=== PATIENT | female | born 1960 | race Caucasian/White ===

== ENCOUNTER → 2018-07-08 | Outpatient (CLI) | payer OTHER ==
[~2018-07-08] MED LIST: CELEBREX
== END ==
LOC: MHCPAIN 08:34
DX: G89.29 Other chronic pain (principal); M54.12 Radiculopathy, cervical region; M47.817 Spondylosis without myelopathy or radiculopathy, lumbosacral region; R51 Headache; M54.81 Occipital neuralgia
CPT/HCPCS: G0463

== ENCOUNTER → 2018-08-05 | Outpatient (CLI) | payer OTHER | LOC: MHCPAIN 15:09 | DX: G89.29 Other chronic pain (principal); M50.90 Cervical disc disorder, unspecified, unspecified cervical region; M54.12 Radiculopathy, cervical region; M54.81 Occipital neuralgia; R51 Headache | CPT/HCPCS: G0463 ==

== ENCOUNTER → 2018-08-14 | Outpatient (CLI) | payer OTHER | LOC: MHCPAIN 13:02 | DX: M54.12 Radiculopathy, cervical region (principal); M50.90 Cervical disc disorder, unspecified, unspecified cervical region; R51 Headache ==

== ENCOUNTER → 2018-08-25 | Outpatient (CLI) | payer OTHER | LOC: MHCPAIN 08:44 | DX: G89.29 Other chronic pain (principal); M50.90 Cervical disc disorder, unspecified, unspecified cervical region; M54.12 Radiculopathy, cervical region; M54.81 Occipital neuralgia; R51 Headache | CPT/HCPCS: G0463 ==

== ENCOUNTER → 2018-09-04 | Outpatient (CLI) | payer OTHER | LOC: MHCPAIN 10:14 | DX: M54.12 Radiculopathy, cervical region (principal); M50.90 Cervical disc disorder, unspecified, unspecified cervical region; R51 Headache | CPT/HCPCS: J0461 ==

== ENCOUNTER → 2018-09-08 | Outpatient (CLI) | payer OTHER | LOC: MHCPAIN 09:46 | DX: M54.12 Radiculopathy, cervical region (principal); M50.90 Cervical disc disorder, unspecified, unspecified cervical region ==

== ENCOUNTER → 2018-09-16 | Outpatient (CLI) | payer OTHER | LOC: MHCPAIN 13:06 | DX: G89.29 Other chronic pain (principal); M50.90 Cervical disc disorder, unspecified, unspecified cervical region; M54.12 Radiculopathy, cervical region; M54.81 Occipital neuralgia; R51 Headache | CPT/HCPCS: G0463 ==

== ENCOUNTER → 2018-09-22 | Outpatient (CLI) | payer OTHER | LOC: MHCPAIN 10:36 | DX: M54.12 Radiculopathy, cervical region (principal); M50.90 Cervical disc disorder, unspecified, unspecified cervical region; R51 Headache | CPT/HCPCS: J0461; J1100; J2250; J3010 ==

== ENCOUNTER → 2018-11-17 | Outpatient (CLI) | payer OTHER | LOC: MHCPAIN 07:59 | DX: G89.29 Other chronic pain (principal); M54.12 Radiculopathy, cervical region; M54.81 Occipital neuralgia; R51 Headache; M47.812 Spondylosis without myelopathy or radiculopathy, cervical region | CPT/HCPCS: G0463 ==

== ENCOUNTER → 2019-07-14 | Outpatient (CLI) | payer OTHER | LOC: COL.RAD 16:00 | DX: M47.816 Spondylosis without myelopathy or radiculopathy, lumbar region (principal); Z98.890 Other specified postprocedural states ==

== ENCOUNTER → 2019-07-14 | Outpatient (CLI) | payer OTHER | LOC: MHCPAIN 15:02 | DX: G89.29 Other chronic pain (principal); M47.817 Spondylosis without myelopathy or radiculopathy, lumbosacral region; M54.16 Radiculopathy, lumbar region; M53.3 Sacrococcygeal disorders, not elsewhere classified | CPT/HCPCS: G0463 ==

== ENCOUNTER → 2019-07-30 | Outpatient (CLI) | payer OTHER | LOC: MHCPAIN 08:12 | DX: M47.817 Spondylosis without myelopathy or radiculopathy, lumbosacral region (principal); M54.16 Radiculopathy, lumbar region | CPT/HCPCS: J1100; Q9967 ==

== ENCOUNTER → 2019-08-12 | Outpatient (CLI) | payer OTHER | LOC: MHCPAIN 08:53 | DX: G89.29 Other chronic pain (principal); M47.817 Spondylosis without myelopathy or radiculopathy, lumbosacral region; M54.16 Radiculopathy, lumbar region; M53.3 Sacrococcygeal disorders, not elsewhere classified | CPT/HCPCS: G0463 ==

== ENCOUNTER 2019-08-31 08:34 | Outpatient (CLI) | payer OTHER ==
[2019-08-31] VITALS (10 sets, daily range): BP systolic 98–115; BP diastolic 65–76; PULSE 70–86; TEMP 97.6
[~2019-08-31] VITALS: Ht 172.7 cm; Wt 77.8 kg
[~2019-08-31 08:34] MED LIST changes: +ASPIRIN E.C. 8181 MG PO; -CELEBREX; +CELEBREX400 MG PO; +NEURONTIN300 MG/CAP PO; +ULTRAM 50MG TAB50 MG PO; +VOSOL 15 ML15 M1 OT
--- NOTE | 2019-08-31 10:15 | NUR ---
Pt to [facility] per cart s/p myelogram. Pt resting well, at bedside.
--- NOTE | 2019-08-31 12:50 | NUR ---
Pt has ambulated, voided and connie PO intake s n/v.
--- NOTE | 2019-08-31 13:10 | NUR ---
Pt discharged per w/c by nurse with .
== END 2019-08-31 14:19 | disposition home or self-care (01) ==
LOC: COL.RAD 08:34
DX: M51.16 Intervertebral disc disorders with radiculopathy, lumbar region (principal); M12.88 Other specific arthropathies, not elsewhere classified, other specified site; M48.061 Spinal stenosis, lumbar region without neurogenic claudication; Z98.1 Arthrodesis status
CPT/HCPCS: Q9965

== ENCOUNTER → 2019-10-15 | Outpatient (CLI) | payer OTHER | LOC: COL.RAD 11:20 | DX: M51.36 Other intervertebral disc degeneration, lumbar region (principal) ==

== ENCOUNTER → 2019-11-24 | Outpatient (CLI) | payer OTHER | LOC: MHCPAIN 09:02 | DX: M47.817 Spondylosis without myelopathy or radiculopathy, lumbosacral region (principal); M54.16 Radiculopathy, lumbar region | CPT/HCPCS: G0463 ==

== ENCOUNTER → 2020-05-25 | Outpatient (CLI) | payer OTHER | LOC: MHCPAIN 08:25 | DX: M47.817 Spondylosis without myelopathy or radiculopathy, lumbosacral region (principal); M54.5 Low back pain; M53.3 Sacrococcygeal disorders, not elsewhere classified; G89.29 Other chronic pain; M54.16 Radiculopathy, lumbar region | CPT/HCPCS: G0463 ==

== ENCOUNTER 2020-08-16 15:15 | Outpatient (RCR) | payer OTHER, BC | END 2020-10-09 | disposition home or self-care (01) | LOC: WSPT | DX: M47.817 Spondylosis without myelopathy or radiculopathy, lumbosacral region (principal); M53.3 Sacrococcygeal disorders, not elsewhere classified; M54.16 Radiculopathy, lumbar region ==

== ENCOUNTER → 2020-09-06 | Outpatient (CLI) | payer BC, OTHER | LOC: MHCPAIN 13:01 | DX: M47.817 Spondylosis without myelopathy or radiculopathy, lumbosacral region (principal); M54.5 Low back pain; M53.3 Sacrococcygeal disorders, not elsewhere classified; G89.29 Other chronic pain | CPT/HCPCS: G0463 ==

== ENCOUNTER → 2020-09-19 | Outpatient (CLI) | payer BC, OTHER | LOC: MHCPAIN 12:27 | DX: M47.817 Spondylosis without myelopathy or radiculopathy, lumbosacral region (principal); M54.5 Low back pain | CPT/HCPCS: J0461 ==

== ENCOUNTER 2020-10-13 15:00 | Outpatient (RCR) | payer BC, OTHER | END 2020-11-14 10:46 | disposition home or self-care (01) | LOC: WSPT 15:00 | DX: M51.16 Intervertebral disc disorders with radiculopathy, lumbar region (principal); M47.819 Spondylosis without myelopathy or radiculopathy, site unspecified ==

== ENCOUNTER → 2022-06-05 | Outpatient (CLI) | payer BC | LOC: MHCPAIN 08:17 | DX: M47.812 Spondylosis without myelopathy or radiculopathy, cervical region (principal); M54.81 Occipital neuralgia; M54.12 Radiculopathy, cervical region | CPT/HCPCS: G0463 ==

== ENCOUNTER → 2022-06-28 | Outpatient (CLI) | payer BC | LOC: MHCPAIN 07:35 | DX: M47.812 Spondylosis without myelopathy or radiculopathy, cervical region (principal); M54.2 Cervicalgia; M54.12 Radiculopathy, cervical region | CPT/HCPCS: J0461; J1100; Q9967 ==

== ENCOUNTER → 2022-07-24 | Outpatient (CLI) | payer BC | LOC: MHCPAIN 08:02 | DX: M47.812 Spondylosis without myelopathy or radiculopathy, cervical region (principal); M54.12 Radiculopathy, cervical region; G44.86 Cervicogenic headache; G89.29 Other chronic pain | CPT/HCPCS: G0463 ==

== ENCOUNTER → 2023-01-08 | Outpatient (CLI) | payer BC | LOC: MHCPAIN 10:52 | DX: M47.812 Spondylosis without myelopathy or radiculopathy, cervical region (principal); M54.2 Cervicalgia; G44.86 Cervicogenic headache; M54.50 Low back pain, unspecified; M54.81 Occipital neuralgia | CPT/HCPCS: G0463 ==